=== PATIENT | female | born 1965 | race Caucasian/White ===

== ENCOUNTER 2018-04-06 17:42 | Inpatient (IN) | payer SELFPAY ==
[~2018-04-06] VITALS: Ht 172.7 cm; Wt 103.8 kg
[2018-04-06 17:44] VITALS: BP 92/59; PULSE 57; TEMP 98.9
[2018-04-06] MEDS ORDERED: PRINIVIL10 MG PO (19:15)
[2018-04-06 20:36] LABS: HEMOGLOBIN 12.6 g/dl (12.5-16.0); MEAN CELL VOLUME 87 fl (80.0-100.0); MEAN CORPUSCULAR HEMOGLOBIN 30 pg (27.0-31.0); MEAN CORPUSCULAR HGB CONC 34 g/dl (33.0-37.0); MEAN PLATELET VOLUME 10.7 fl (7.4-10.4); PLATELET COUNT 207 K/mm3 (130-400); RED BLOOD COUNT 4.21 M/mm3 (4.10-5.30); REDCELL DISTRIBUTION WIDTH-CV 12.6 % (11.5-14.5)
[2018-04-06 20:37] LABS: HEMATOCRIT 36.7 % (37.0-47.0)
[2018-04-06 20:41] LABS: PROTHROMBIN TIME 11.2 SECONDS (9.7-12.8)
[2018-04-06 20:44] LABS: PARTIAL THROMBOPLASTIN TIME 24.3 SECONDS (26.0-37.0)
[2018-04-06 20:44] LABS: MAGNESIUM 1.7 mg/dL (1.6-2.3)
[2018-04-06 20:49] VITALS: BP 103/62; PULSE 58; TEMP 98.1
[2018-04-06 21:04] LABS: TROPONIN-I 2.26 ng/mL (0.000-0.034)
[2018-04-06 22:00] VITALS: BP 116/76; PULSE 67; TEMP 98.2
[2018-04-06 23:15] VITALS: BP 108/69; PULSE 68; TEMP 98.2
[2018-04-07] VITALS (23 sets, daily range): BP systolic 13–153; BP diastolic 64–87; PULSE 55–69; TEMP 97.8–98.4
[2018-04-07 05:18] LABS: BASO % 0.4 % (0.0-2.0); EOS # 0.1 (0.0-0.7); EOS % 0.9 % (0-4.0); GRAN % 55.1 % (42.2-75.2); HEMOGLOBIN 11.9 g/dl (12.5-16.0); LYMPH # 3.4 (1.2-3.4); LYMPH % 37.5 % (20.0-51.0); MEAN CELL VOLUME 90 fl (80.0-100.0); MEAN CORPUSCULAR HEMOGLOBIN 30 pg (27.0-31.0); MEAN CORPUSCULAR HGB CONC 33 g/dl (33.0-37.0); MEAN PLATELET VOLUME 10.8 fl (7.4-10.4); MONO # 0.5 (0.1-0.6); MONO % 5.9 % (1.7-9.3); PLATELET COUNT 199 K/mm3 (130-400); RED BLOOD COUNT 4.02 M/mm3 (4.10-5.30); REDCELL DISTRIBUTION WIDTH-CV 12.7 % (11.5-14.5)
[2018-04-07 05:29] LABS: ALBUMIN 3.4 gm/dL (3.5-5.0); BILIRUBIN,TOTAL 0.3 mg/dL (0.0-1.0); CALCIUM 8.1 mg/dL (8.4-10.2); CHOLESTEROL RISK RATIO 6.5; CREATININE, serum 0.55 mg/dL (0.52-1.25); POTASSIUM 3.9 mmol/L (3.4-5.0); TOTAL PROTEIN 6.5 gm/dL (6.4-8.2)
[2018-04-07 05:44] LABS: TROPONIN-I 3.33 ng/mL (0.000-0.034)
[2018-04-08] VITALS (7 sets, daily range): BP systolic 113–153; BP diastolic 74–90; PULSE 62–82; TEMP 97.6–98.3; O2SAT 75
[2018-04-08] MEDS ORDERED: PLAVIX 75MG TAB75 MG PO (14:22)
[2018-04-08] MEDS ORDERED: LIPITOR 40MG TA40 MG PO (14:22)
[2018-04-08] MEDS ORDERED: GLUCOTROL XL5 MG/TAB PO (14:27)
[2018-04-08] MEDS ORDERED: TOPROL XL 25MG25 MG PO (14:27)
[2018-04-08] MEDS ORDERED: ASPIRIN E.C. 8181 MG PO (14:28)
[2018-04-08] MEDS ORDERED: GLUCOPHAGE500 MG/TAB PO (14:32)
[2018-04-08] MEDS ORDERED: GLUCOSE TEST ST1 DEV MC (14:32)
[2018-04-08] MEDS ORDERED: FREESTYLE PREC1 EAC5 MC (14:32)
[2018-04-08] MEDS ORDERED: IMDUR 30MG30 MG/TAB PO (14:34)
== END 2018-04-08 15:10 | disposition home or self-care (01) | DRG 282 ==
LOC: MEDICAL 17:42 → ICU 21:40
PROVIDERS: Nurse Practitioner Family
PROC: B2111ZZ Fluoroscopy of Multiple Coronary Arteries using Low Osmolar Contrast (ICD-10-PCS; principal; 2018-04-07)
PROC: B2151ZZ Fluoroscopy of Left Heart using Low Osmolar Contrast (ICD-10-PCS; 2018-04-07)
PROC: 4A023N7 Measurement of Cardiac Sampling and Pressure, Left Heart, Percutaneous Approach (ICD-10-PCS; 2018-04-07)
DX: I21.4 Non-ST elevation (NSTEMI) myocardial infarction (principal); I10 Essential (primary) hypertension; E11.65 Type 2 diabetes mellitus with hyperglycemia; I25.10 Atherosclerotic heart disease of native coronary artery without angina pectoris; F17.210 Nicotine dependence, cigarettes, uncomplicated; E78.2 Mixed hyperlipidemia
CPT/HCPCS: 99223-AI; 99239; C1769; C1887; G0378; G0379; J1644; J1815; J2250; J2270; J2405; J3010; J7030; Q9967

== ENCOUNTER → 2018-04-27 | Outpatient (CLI) | payer SELFPAY ==
[~2018-04-27] VITALS: Ht 172.8 cm; Wt 102.0 kg
[~2018-04-27] MED LIST: ASPIRIN E.C. 8181 MG PO; FREESTYLE PREC1 EAC5 MC; GLUCOPHAGE500 MG/TAB PO; GLUCOSE TEST ST1 DEV MC; GLUCOTROL XL5 MG/TAB PO; IMDUR 30MG30 MG/TAB PO; LIPITOR 40MG TA40 MG PO; PLAVIX 75MG TAB75 MG PO; PRINIVIL10 MG PO; TOPROL XL 25MG25 MG PO
[2018-04-27 10:54] VITALS: BP 156/81; PULSE 70
== END ==
LOC: COL.CARD 10:34
DX: R07.89 Other chest pain (principal)
CPT/HCPCS: A9502

== ENCOUNTER 2018-06-13 10:16 | Emergency (ER) | payer SELFPAY ==
[~2018-06-13] VITALS: Ht 172.7 cm; Wt 105.0 kg
[2018-06-13 10:22] VITALS: TEMP 97.4
[2018-06-13 10:44] LABS: BASO % 0.4 % (0.0-2.0); EOS # 0.1 (0.0-0.7); EOS % 1.4 % (0-4.0); GRAN % 56.8 % (42.2-75.2); HEMOGLOBIN 13.2 g/dl (12.5-16.0); LYMPH # 2.6 (1.2-3.4); LYMPH % 36.1 % (20.0-51.0); MEAN CELL VOLUME 87 fl (80.0-100.0); MEAN CORPUSCULAR HEMOGLOBIN 29 pg (27.0-31.0); MEAN CORPUSCULAR HGB CONC 33 g/dl (33.0-37.0); MEAN PLATELET VOLUME 9.9 fl (7.4-10.4); MONO # 0.4 (0.1-0.6); MONO % 5.2 % (1.7-9.3); PLATELET COUNT 239 K/mm3 (130-400); REDCELL DISTRIBUTION WIDTH-CV 12.6 % (11.5-14.5)
[2018-06-13 11:01] LABS: ALANINE AMINOTRANSFERASE 38 U/L (9-52); ALBUMIN 4.2 gm/dL (3.5-5.0); ALKALINE PHOSPHATASE 82 U/L (50-136); ANION GAP 7 mmol/L (7-16); AST,SGOT 21 U/L (15-37); BILIRUBIN,TOTAL 0.4 mg/dL (0.0-1.0); BLOOD UREA NITROGEN 14 mg/dL (7-17); CALCIUM 9.6 mg/dL (8.4-10.2); CARBON DIOXIDE 30 mmol/L (22-30); CHLORIDE 104 mmol/L (98-107); CREATININE, serum 0.62 mg/dL (0.52-1.25); GLUCOSE 175 mg/dL (74-106); LIPASE 103 U/L (23-300); POTASSIUM 4.1 mmol/L (3.4-5.0); SODIUM 141 mmol/L (137-145); TOTAL PROTEIN 7.6 gm/dL (6.4-8.2)
[2018-06-13 11:17] LABS: TROPONIN-I < 0.012 ng/mL (0.000-0.034)
[2018-06-13 11:19] LABS: MUCOUS Present /lpf; PH 5 (5-8); SQUAMOUS EPITHELIAL 0-2 /hpf; URINE APPEARANCE Clear; URINE BACTERIA Rare /hpf; URINE BILIRUBIN Negative (NEGATIVE); URINE BLOOD Negative (NEGATIVE); URINE COLOR Straw; URINE GLUCOSE Negative (NEGATIVE); URINE KETONE Negative (NEGATIVE); URINE LEUKOCYTE ESTERASE Negative (NEGATIVE); URINE NITRATE Negative (NEGATIVE); URINE PROTEIN(semi-quant) Negative (NEGATIVE); URINE RBC 0-2 /hpf; URINE UROBILINOGEN Negative (NEGATIVE); URINE WBC None Seen /hpf
[2018-06-13 11:28] LABS: COLLECTION METHOD CLEAN CATCH
[2018-06-13] MEDS ORDERED: NITROSTAT0.4 MG/TAB SL (13:54)
[2018-06-13 14:13] VITALS: BP 120/68; PULSE 69
== END 2018-06-13 14:13 | disposition home or self-care (01) ==
LOC: COL.ER 10:16
PROVIDERS: Emergency Medicine
DX: I20.9 Angina pectoris, unspecified (principal); I10 Essential (primary) hypertension; E11.9 Type 2 diabetes mellitus without complications; E66.9 Obesity, unspecified; Z79.82 Long term (current) use of aspirin; Z87.891 Personal history of nicotine dependence; Z95.9 Presence of cardiac and vascular implant and graft, unspecified; Z79.02 Long term (current) use of antithrombotics/antiplatelets; Z79.84 Long term (current) use of oral hypoglycemic drugs; Z68.35 Body mass index [BMI] 35.0-35.9, adult
CPT/HCPCS: J7030

== ENCOUNTER 2018-10-24 16:55 | Observation (INO) | payer BC ==
[2018-10-24] VITALS (119 sets, daily range): O2SAT 86–97
[~2018-10-24] VITALS: Ht 172.7 cm; Wt 106.8 kg
[~2018-10-24 16:55] MED LIST changes: +NITROSTAT0.4 MG/TAB SL
[2018-10-24 17:16] LABS: BASO # 0.1 (0.0-0.2); BASO % 0.6 % (0.0-2.0); EOS # 0.1 (0.0-0.7); GRAN # 5.1 (1.4-6.5); GRAN % 53.3 % (42.2-75.2); HEMOGLOBIN 13.9 g/dl (12.5-16.0); LYMPH # 3.8 (1.2-3.4); LYMPH % 39.2 % (20.0-51.0); MEAN CELL VOLUME 85 fl (80.0-100.0); MEAN CORPUSCULAR HEMOGLOBIN 28 pg (27.0-31.0); MEAN CORPUSCULAR HGB CONC 33 g/dl (33.0-37.0); MEAN PLATELET VOLUME 9.9 fl (7.4-10.4); MONO # 0.6 (0.1-0.6); MONO % 5.7 % (1.7-9.3); PLATELET COUNT 274 K/mm3 (130-400); RED BLOOD COUNT 4.94 M/mm3 (4.10-5.30); REDCELL DISTRIBUTION WIDTH-CV 13.1 % (11.5-14.5)
[2018-10-24 17:24] LABS: PROTHROMBIN TIME 11.6 SECONDS (9.7-12.8)
[2018-10-24 17:29] LABS: ALANINE AMINOTRANSFERASE 17 U/L (9-52); ALBUMIN 4.5 gm/dL (3.5-5.0); ALKALINE PHOSPHATASE 99 U/L (50-136); ANION GAP 10 mmol/L (7-16); AST,SGOT 21 U/L (15-37); BILIRUBIN,TOTAL 0.5 mg/dL (0.0-1.0); BLOOD UREA NITROGEN 17 mg/dL (7-17); CALCIUM 10.3 mg/dL (8.4-10.2); CARBON DIOXIDE 30 mmol/L (22-30); CHLORIDE 100 mmol/L (98-107); CREATININE, serum 0.72 (0.52-1.25); GLUCOSE 106 mg/dL (74-106); SODIUM 139 mmol/L (137-145); TOTAL PROTEIN 8.7 gm/dL (6.4-8.2)
[2018-10-24 17:41] LABS: TROPONIN-I < 0.012 ng/mL (0.000-0.035)
--- NOTE | 2018-10-24 21:00 | NUR ---
Pt report received from Karina BANDA in ED.
--- NOTE | 2018-10-24 21:05 | NUR ---
Pt arrived to ICU06 via stretcher. Sister in waiting room at this time. Pt currently has glasses in place on face. Pleasant and cooperative making wants and needs known to staff at this time. Speech is clear with A&O X4 demonstrated.
[2018-10-24] MEDS ORDERED: TOPROL XL 25MG25 MG PO (21:26)
[2018-10-25] VITALS (541 sets, daily range): BP systolic 111–132; BP diastolic 49–89; PULSE 60–81; TEMP 97.7–98.6; O2SAT 82–100
--- NOTE | 2018-10-25 00:30 | NUR ---
RT notified of decreased O2 sat seen as low as 88% on RA. NC 2L placed on pt at this time.
--- NOTE | 2018-10-25 05:00 | NUR ---
Pt reported a "really bad headache" at this time. PRN Tylenol administered in attempts to help. Pt denies any chest pain at this time. Discussion had with pt with agreement to try to titrate Nitro down due to improvement in chest pain and worsening of headache.
[2018-10-25 05:36] LABS: BASO % 0.6 % (0.0-2.0); EOS # 0.1 (0.0-0.7); GRAN # 3.4 (1.4-6.5); GRAN % 48.6 % (42.2-75.2); HEMATOCRIT 38.3 % (37.0-47.0); HEMOGLOBIN 12.5 g/dl (12.5-16.0); MEAN CELL VOLUME 86 fl (80.0-100.0); MEAN CORPUSCULAR HEMOGLOBIN 28 pg (27.0-31.0); MEAN CORPUSCULAR HGB CONC 33 g/dl (33.0-37.0); MEAN PLATELET VOLUME 9.7 fl (7.4-10.4); MONO # 0.5 (0.1-0.6); MONO % 6.7 % (1.7-9.3); PLATELET COUNT 229 K/mm3 (130-400); RED BLOOD COUNT 4.48 M/mm3 (4.10-5.30); REDCELL DISTRIBUTION WIDTH-CV 13.3 % (11.5-14.5)
[2018-10-25 05:46] LABS: CALCIUM 9.4 mg/dL (8.4-10.2); CREATININE, serum 0.65 (0.52-1.25); POTASSIUM 4.1 mmol/L (3.4-5.0)
--- NOTE | 2018-10-25 06:15 | NUR ---
Pt reports headache has resolved although the midline chest pressure has gradually returned. Pt and nurse verbal agreement received to treat the chest pressure at this time over headache if prioritizing, especially since pt reports headaches has improved at this time.
--- NOTE | 2018-10-25 07:10 | NUR ---
Bedside report provided to Boom Chance RN. Pt resting in bed at this time with television on.
--- NOTE | 2018-10-25 10:56 | NUR ---
Initial visit; Patient thanked Travel Registered Nurse Oncology for looking in on her and asked Travel Registered Nurse Oncology to keep her in Travel Registered Nurse Oncology's prayers.
--- NOTE | 2018-10-25 15:25 | NUR ---
SW and SW student attended clinical rounding and met with patient to discuss discharge planning. Patient lives with her sister Luana in [place]. Her PCP is Joana DIAZ and she obtains her medications from [facility] in . Patient has a DPOA on EMR that lists her son Surendra. Patient is independent in ADLS. no anticipated discharge needs at this time.
--- NOTE | 2018-10-25 17:30 | NUR ---
Report phoned to VERONIKA Morgan
--- NOTE | 2018-10-25 17:31 | NUR ---
received report from VERONIKA Nur
--- NOTE | 2018-10-25 17:44 | NUR ---
patient arrived to room 309 via wheelchair.Transported by VERONIKA Nur
--- NOTE | 2018-10-25 19:08 | NUR ---
PATIENT SITTING UP IN BED.A/OX3.DENIES PAIN OR DISCOMFORT AT THIS TIME.BREATHING EVEN AND UNALBORED.PATIENT ON RA.PATIENT TOOK A SHOWER.REMAINS ON CLEAR LIQUID DIET.PATIENT DENIES CHEST PAIN.TELE ON-NSR.PATIENT DENIES ANY FURTHER NEEDS.CALL LIGHT IN REACH
--- NOTE | 2018-10-25 19:10 | NUR ---
REPORT GIVEN TO VERONIKA SEGURA.
--- NOTE | 2018-10-25 19:20 | NUR ---
Patient resting in bed watching tv, just finished showering and eating dinner. Put back on telemetry after shower. Reports some epigastric pain after finishing her dinner- 08/04, but reports no nausea at this time. Lung sounds clear, abdominal sounds active, pulses +3, alert and oriented x4, steady gait. No further needs at this time.
[2018-10-26 03:14] VITALS: BP 109/51; PULSE 75; TEMP 98.2
--- NOTE | 2018-10-26 05:01 | NUR ---
Pt slept for most of the night, VSS, given TUMS at beginning of shift for some epigastric pain. No needs at this time.
--- NOTE | 2018-10-26 07:00 | NUR ---
Reported on to Jana BANDA
--- NOTE | 2018-10-26 07:06 | NUR ---
Report given to VERONIKA Bates. Patient resting in bed at this time.
--- NOTE | 2018-10-26 07:25 | NUR ---
Received report. Pt sitting in bed, complaining of mild nausea and says her chest was hurting when she was sitting up high. Will administer zofran per emar.
--- NOTE | 2018-10-26 07:30 | NUR ---
Pt sitting up in bed, refused zofran. Stated she was feeling better and thought she would wait. Pt says her chest feels heavy when she is sitting upright. Jonnathan continue to monitor. Call light in reach.
--- NOTE | 2018-10-26 07:45 | NUR ---
Shift Assessment complete, INT to right forearm CDI; reports midsternal pressure at a level 3, worsens when sitting upright or leaning forward; No further needs at this time
[2018-10-26 07:50] VITALS: BP 132/79; PULSE 73; TEMP 97.3
--- NOTE | 2018-10-26 08:15 | NUR ---
Completed morning assessment. Reviewed [facility] student [place] assessment. Agree with assessment.
--- NOTE | 2018-10-26 10:15 | NUR ---
Follow-up visit; Patient states she is discouraged about her present health status. Customer Support Coordinator listened and offered spiritual care.
--- NOTE | 2018-10-26 10:15 | NUR ---
Pt states her pain is better now but still at a 3 on scale 0-10. Pt had shower and has no nausea at the moment.
[2018-10-26 11:13] VITALS: BP 129/75; PULSE 63; TEMP 97.9
[2018-10-26 15:49] VITALS: BP 115/69; PULSE 71; TEMP 97.6
--- NOTE | 2018-10-26 18:00 | NUR ---
PT SITTING IN CHAIR EATING DINNER. COMPLAINING OF CHEST TIGHTNESS STILL. FEELING ANXIOUS THAT NO ONE HAS GIVEN HER EXACT IDEA ABOUT WHAT IS HAPPENING. DENIES ANY OTHER NEEDS.
--- NOTE | 2018-10-26 18:54 | NUR ---
Hand off report given to Diana BANDA.
[2018-10-26 19:32] VITALS: BP 115/58; PULSE 72; TEMP 97.5
--- NOTE | 2018-10-26 22:19 | NUR ---
Patient assessed. Denies having pain and discomfort. LS CTA. Peripheral IV to right AC is patent, and without redness, warmth, swelling, and pain. Vioces no needs or concerns at this time. Resting in bed with eyes closed at this time. Call light is within reach.
--- NOTE | 2018-10-26 23:10 | NUR ---
Resting in bed with eyes closed at this time.
[2018-10-26 23:25] VITALS: BP 116/58; PULSE 70; TEMP 97.6
[2018-10-27 03:55] VITALS: BP 115/61; PULSE 67; TEMP 97.7
--- NOTE | 2018-10-27 05:41 | NUR ---
Patient denies having pain and discomfort. Took shower this morning. Voices no needs or concerns at this time. In bed watching TV at this time. Call light is within reach.
[2018-10-27 06:25] LABS: HEMATOCRIT 38.4 % (37.0-47.0); HEMOGLOBIN 12.7 g/dl (12.5-16.0); MEAN CELL VOLUME 85 fl (80.0-100.0); MEAN CORPUSCULAR HEMOGLOBIN 28 pg (27.0-31.0); MEAN CORPUSCULAR HGB CONC 33 g/dl (33.0-37.0); MEAN PLATELET VOLUME 9.5 fl (7.4-10.4); PLATELET COUNT 237 K/mm3 (130-400); RED BLOOD COUNT 4.52 M/mm3 (4.10-5.30); REDCELL DISTRIBUTION WIDTH-CV 13.1 % (11.5-14.5)
[2018-10-27 06:39] LABS: CALCIUM 9.2 mg/dL (8.4-10.2); CREATININE, serum 0.58 (0.52-1.25); POTASSIUM 4.1 mmol/L (3.4-5.0)
[2018-10-27 07:57] VITALS: BP 115/73; PULSE 67; TEMP 97.7
--- NOTE | 2018-10-27 09:31 | NUR ---
Follow-up visit; Patient thanked University Intern for looking in on her again today. She continues to be discouraged about her physical status but continues to have stephon things will turn around.
[2018-10-27 12:12] VITALS: BP 123/82; PULSE 59; TEMP 98.3
[2018-10-27] MEDS ORDERED: IMDUR 60MG60 MG/TAB PO (12:20)
[2018-10-27] MEDS ORDERED: MOTRIN 400400 MG/TAB PO (12:21)
[2018-10-27] MEDS ORDERED: PROTONIX20 MG PO (12:21)
[2018-10-27] MEDS ORDERED: COLCRYS0.6 MG PO (12:22)
[2018-10-27] MEDS ORDERED: GLUCOPHAGE850 MG/TAB PO (12:22)
[2018-10-27] MEDS ORDERED: RANEXA 500MG T500 MG PO (12:23)
--- NOTE | 2018-10-27 13:00 | NUR ---
PT SITTING IN CHAIR. PT WILL BE DISCHARGING, DENIED HAVING ANY QUESTIONS. STILL HAVING TIGHTNESS IN HER CHEST, BUT NO PAIN OR NAUSEA. WILL CONTINUE TO MONITOR.
--- NOTE | 2018-10-27 14:30 | NUR ---
Discharge paperwork given. All questions answered. INT removed, catheter tip intact, no redness or swelling noted. Pt has all belongings.
--- NOTE | 2018-10-27 15:35 | NUR ---
Pt walked out by staff to elevator.
== END 2018-10-27 15:35 | disposition home or self-care (01) ==
LOC: COL.ER 16:55 → ICU 18:46 → IMCU 10-25 08:26 → ICU 10-25 08:26 → IMCU 10-25 09:18 → ICU 10-25 09:18 → MEDICAL 10-25 17:33
PROVIDERS: Family Medicine; Nurse Practitioner; Physician Assistant; ADMIT Internal Medicine
DX: R07.9 Chest pain, unspecified (principal); E11.9 Type 2 diabetes mellitus without complications; Z79.4 Long term (current) use of insulin; E78.5 Hyperlipidemia, unspecified; I25.2 Old myocardial infarction; I10 Essential (primary) hypertension; Z79.02 Long term (current) use of antithrombotics/antiplatelets; Z79.82 Long term (current) use of aspirin; Z79.899 Other long term (current) drug therapy; Z87.891 Personal history of nicotine dependence; Z80.0 Family history of malignant neoplasm of digestive organs; Z82.49 Family history of ischemic heart disease and other diseases of the circulatory system; Z88.2 Allergy status to sulfonamides; F41.0 Panic disorder [episodic paroxysmal anxiety]; Z90.710 Acquired absence of both cervix and uterus; Z90.49 Acquired absence of other specified parts of digestive tract
CPT/HCPCS: 99232-AI; G0378; J2405

== ENCOUNTER 2019-02-26 08:40 | Emergency (ER) | payer BC ==
[~2019-02-26] VITALS: Ht 172.7 cm; Wt 104.5 kg
[~2019-02-26 08:40] MED LIST changes: +COLCRYS0.6 MG PO; +GLUCOPHAGE850 MG/TAB PO; +IMDUR 60MG60 MG/TAB PO; +MOTRIN 400400 MG/TAB PO; +PROTONIX20 MG PO; +RANEXA 500MG T500 MG PO
[2019-02-26 08:47] VITALS: TEMP 98.7
[2019-02-26 09:17] LABS: BASO # 0.1 (0.0-0.2); BASO % 0.6 % (0.0-2.0); EOS # 0.1 (0.0-0.7); EOS % 1.7 % (0-4.0); GRAN # 4.2 (1.4-6.5); GRAN % 54.1 % (42.2-75.2); HEMATOCRIT 42.6 % (37.0-47.0); LYMPH % 38.2 % (20.0-51.0); MEAN CELL VOLUME 87 fl (80.0-100.0); MEAN CORPUSCULAR HEMOGLOBIN 29 pg (27.0-31.0); MEAN CORPUSCULAR HGB CONC 33 g/dl (33.0-37.0); MONO # 0.4 (0.1-0.6); MONO % 5.1 % (1.7-9.3); PLATELET COUNT 240 K/mm3 (130-400); RED BLOOD COUNT 4.91 M/mm3 (4.10-5.30); REDCELL DISTRIBUTION WIDTH-CV 12.8 % (11.5-14.5)
[2019-02-26 09:21] LABS: INR 0.9 (0.8-3.0); PROTHROMBIN TIME 10.1 SECONDS (9.7-12.8)
[2019-02-26 09:24] LABS: PARTIAL THROMBOPLASTIN TIME 30.1 SECONDS (26.0-37.0)
[2019-02-26 09:26] LABS: ALANINE AMINOTRANSFERASE 19 U/L (9-52); ALBUMIN 4.4 gm/dL (3.5-5.0); ALKALINE PHOSPHATASE 93 U/L (50-136); ANION GAP 13 mmol/L (7-16); AST,SGOT 21 U/L (15-37); BILIRUBIN,TOTAL 0.6 mg/dL (0.0-1.0); BLOOD UREA NITROGEN 14 mg/dL (7-17); CALCIUM 9.8 mg/dL (8.4-10.2); CARBON DIOXIDE 27 mmol/L (22-30); CHLORIDE 102 mmol/L (98-107); CREATININE, serum 0.63 (0.52-1.25); GLUCOSE 142 mg/dL (74-106); SODIUM 141 mmol/L (137-145); TOTAL PROTEIN 8.1 gm/dL (6.4-8.2)
[2019-02-26 09:44] LABS: TROPONIN-I < 0.012 ng/mL (0.000-0.035)
[2019-02-26] MEDS ORDERED: GLUCOPHAGE1000 MG PO (10:51)
[2019-02-26 12:03] VITALS: BP 111/68; PULSE 65
== END 2019-02-26 12:03 | disposition home or self-care (01) ==
LOC: COL.ER 08:40
PROVIDERS: Family Medicine
DX: H83.09 Labyrinthitis, unspecified ear (principal); I10 Essential (primary) hypertension; E11.9 Type 2 diabetes mellitus without complications; I25.10 Atherosclerotic heart disease of native coronary artery without angina pectoris; Z79.84 Long term (current) use of oral hypoglycemic drugs; Z79.82 Long term (current) use of aspirin; Z79.02 Long term (current) use of antithrombotics/antiplatelets
CPT/HCPCS: J2405; J7030

== ENCOUNTER → 2019-02-27 | Outpatient (CLI) | payer BC ==
[~2019-02-27] MED LIST changes: +GLUCOPHAGE1000 MG PO
== END ==
LOC: DIA.ED 08:17
DX: E11.9 Type 2 diabetes mellitus without complications (principal); E78.5 Hyperlipidemia, unspecified; I10 Essential (primary) hypertension; E66.9 Obesity, unspecified
CPT/HCPCS: G0108

== ENCOUNTER → 2019-03-22 | Outpatient (CLI) | payer BC | LOC: DIA.ED 08:20 | DX: E11.9 Type 2 diabetes mellitus without complications (principal); E78.5 Hyperlipidemia, unspecified; I10 Essential (primary) hypertension; E66.9 Obesity, unspecified | CPT/HCPCS: G0108 ==

== ENCOUNTER → 2019-04-19 | Outpatient (CLI) | payer BC | LOC: DIA.ED 08:19 | DX: E11.9 Type 2 diabetes mellitus without complications (principal); E78.5 Hyperlipidemia, unspecified; I10 Essential (primary) hypertension; E66.9 Obesity, unspecified | CPT/HCPCS: G0108 ==

== ENCOUNTER 2019-04-27 09:50 | Emergency (ER) | payer BC ==
[~2019-04-27] VITALS: Ht 172.7 cm; Wt 104.7 kg
[2019-04-27 09:52] VITALS: TEMP 98.1
[2019-04-27 10:18] LABS: BASO % 0.3 % (0.0-2.0); EOS # 0.1 (0.0-0.7); GRAN # 5.6 (1.4-6.5); GRAN % 63.7 % (42.2-75.2); HEMOGLOBIN 12.9 g/dl (12.5-16.0); LYMPH # 2.6 (1.2-3.4); LYMPH % 29.9 % (20.0-51.0); MEAN CELL VOLUME 87 fl (80.0-100.0); MEAN CORPUSCULAR HEMOGLOBIN 29 pg (27.0-31.0); MEAN CORPUSCULAR HGB CONC 33 g/dl (33.0-37.0); MEAN PLATELET VOLUME 9.8 fl (7.4-10.4); MONO # 0.4 (0.1-0.6); MONO % 4.8 % (1.7-9.3); PLATELET COUNT 233 K/mm3 (130-400); PROTHROMBIN TIME 11.1 SECONDS (9.7-12.8); RED BLOOD COUNT 4.46 M/mm3 (4.10-5.30); REDCELL DISTRIBUTION WIDTH-CV 12.8 % (11.5-14.5)
[2019-04-27 10:22] LABS: ALANINE AMINOTRANSFERASE 15 U/L (9-52); ALBUMIN 3.9 gm/dL (3.5-5.0); ALKALINE PHOSPHATASE 78 U/L (50-136); ANION GAP 11 mmol/L (7-16); AST,SGOT 19 U/L (15-37); BILIRUBIN,TOTAL 0.4 mg/dL (0.0-1.0); BLOOD UREA NITROGEN 16 mg/dL (7-17); CALCIUM 9.7 mg/dL (8.4-10.2); CARBON DIOXIDE 25 mmol/L (22-30); CHLORIDE 106 mmol/L (98-107); CREATININE, serum 0.65 (0.52-1.25); GLUCOSE 166 mg/dL (74-106); LIPASE 135 U/L (23-300); POTASSIUM 4.3 mmol/L (3.4-5.0); SODIUM 141 mmol/L (137-145); TOTAL PROTEIN 7.2 gm/dL (6.4-8.2)
[2019-04-27 10:36] LABS: TROPONIN-I < 0.012 ng/mL (0.000-0.035)
[2019-04-27] MEDS ORDERED: IMDUR 30MG30 MG/TAB PO (10:47)
[2019-04-27] MEDS ORDERED: FARXIGA5 PO (10:51)
[2019-04-27 14:23] VITALS: BP 113/59; PULSE 73
== END 2019-04-27 14:27 | disposition home or self-care (01) ==
LOC: COL.ER 09:50
PROVIDERS: Emergency Medicine
DX: R06.02 Shortness of breath (principal); E11.9 Type 2 diabetes mellitus without complications; E78.5 Hyperlipidemia, unspecified; Z79.02 Long term (current) use of antithrombotics/antiplatelets; Z79.84 Long term (current) use of oral hypoglycemic drugs; F17.210 Nicotine dependence, cigarettes, uncomplicated
CPT/HCPCS: J2060; J2550; J7030

== ENCOUNTER → 2019-06-01 | Outpatient (CLI) | payer BC ==
[~2019-06-01] MED LIST changes: +FARXIGA5 PO
== END ==
LOC: DIA.ED 08:21
DX: E11.9 Type 2 diabetes mellitus without complications (principal); E78.5 Hyperlipidemia, unspecified; I10 Essential (primary) hypertension; E66.9 Obesity, unspecified
CPT/HCPCS: G0108

== ENCOUNTER → 2019-08-31 | Outpatient (CLI) | payer BC | LOC: DIA.ED 08:28 | DX: E11.9 Type 2 diabetes mellitus without complications (principal); Z79.84 Long term (current) use of oral hypoglycemic drugs; Z68.34 Body mass index [BMI] 34.0-34.9, adult; I25.10 Atherosclerotic heart disease of native coronary artery without angina pectoris; E78.5 Hyperlipidemia, unspecified; I10 Essential (primary) hypertension | CPT/HCPCS: G0108 ==

== ENCOUNTER → 2020-01-24 | Outpatient (CLI) | payer BC | LOC: ZCOL.LAB 17:20 | DX: M79.604 Pain in right leg (principal) ==

== ENCOUNTER → 2020-01-24 | Outpatient (CLI) | payer BC | LOC: ZCOL.LAB 16:21 | DX: M79.604 Pain in right leg (principal) ==

== ENCOUNTER → 2020-02-22 | Outpatient (CLI) | payer BC | LOC: COL.RAD 09:13 | DX: M51.27 Other intervertebral disc displacement, lumbosacral region (principal); M47.897 Other spondylosis, lumbosacral region; Z90.710 Acquired absence of both cervix and uterus ==

== ENCOUNTER 2020-04-06 18:09 | Emergency (ER) | payer BC ==
[~2020-04-06] VITALS: Ht 172.7 cm; Wt 100.9 kg
[2020-04-06 18:14] VITALS: BP 163/79; TEMP 98.6
[2020-04-06 18:38] LABS: BASO % 0.1 % (0.0-2.0); GRAN # 11.8 (1.4-6.5); GRAN % 82.5 % (42.2-75.2); HEMATOCRIT 41.7 % (37.0-47.0); HEMOGLOBIN 13.9 g/dl (12.5-16.0); LYMPH # 1.9 (1.2-3.4); LYMPH % 13.4 % (20.0-51.0); MEAN CELL VOLUME 87 fl (80.0-100.0); MEAN CORPUSCULAR HEMOGLOBIN 29 pg (27.0-31.0); MEAN CORPUSCULAR HGB CONC 33 g/dl (33.0-37.0); MEAN PLATELET VOLUME 9.9 fl (7.4-10.4); MONO # 0.5 (0.1-0.6); MONO % 3.6 % (1.7-9.3); PLATELET COUNT 276 K/mm3 (130-400); RED BLOOD COUNT 4.82 M/mm3 (4.10-5.30); REDCELL DISTRIBUTION WIDTH-CV 13.1 % (11.5-14.5)
[2020-04-06 19:01] LABS: ERYTHROCYTE SEDIMENTATION RATE 7 mm/hr (0-30)
[2020-04-06] MEDS ORDERED: CEPHALEXIN500 M1 PO (19:15)
[2020-04-06 19:32] VITALS: PULSE 81
== END 2020-04-06 19:31 | disposition home or self-care (01) ==
LOC: COL.ER 18:09
PROVIDERS: Family Medicine
DX: L03.115 Cellulitis of right lower limb (principal); E11.9 Type 2 diabetes mellitus without complications; I25.10 Atherosclerotic heart disease of native coronary artery without angina pectoris; Z79.84 Long term (current) use of oral hypoglycemic drugs; Z79.02 Long term (current) use of antithrombotics/antiplatelets

== ENCOUNTER 2020-05-14 17:57 | Observation (INO) | payer BC ==
[~2020-05-14] VITALS: Ht 172.7 cm; Wt 105.9 kg
[~2020-05-14 17:57] MED LIST changes: +CEPHALEXIN500 M1 PO
[2020-05-14 18:50] LABS: BASO # 0.1 (0.0-0.2); BASO % 0.6 % (0.0-2.0); EOS # 0.1 (0.0-0.7); EOS % 1.1 % (0-4.0); GRAN # 5.3 (1.4-6.5); GRAN % 59.4 % (42.2-75.2); HEMATOCRIT 41.4 % (37.0-47.0); HEMOGLOBIN 13.8 g/dl (12.5-16.0); LYMPH # 2.9 (1.2-3.4); LYMPH % 32.6 % (20.0-51.0); MEAN CELL VOLUME 87 fl (80.0-100.0); MEAN CORPUSCULAR HEMOGLOBIN 29 pg (27.0-31.0); MEAN CORPUSCULAR HGB CONC 33 g/dl (33.0-37.0); MEAN PLATELET VOLUME 9.7 fl (7.4-10.4); MONO # 0.5 (0.1-0.6); PLATELET COUNT 266 K/mm3 (130-400); RED BLOOD COUNT 4.76 M/mm3 (4.10-5.30); REDCELL DISTRIBUTION WIDTH-CV 12.7 % (11.5-14.5)
[2020-05-14 18:56] LABS: ALANINE AMINOTRANSFERASE 30 U/L (4-34); ALBUMIN 4.7 gm/dL (3.5-5.0); ALKALINE PHOSPHATASE 87 U/L (50-136); ANION GAP 10 mmol/L (7-16); AST,SGOT 27 U/L (15-37); BILIRUBIN,TOTAL 0.5 mg/dL (0.0-1.0); BLOOD UREA NITROGEN 18 mg/dL (7-17); CARBON DIOXIDE 29 mmol/L (22-30); CHLORIDE 99 mmol/L (98-107); CREATININE, serum 0.71 (0.52-1.25); GLUCOSE 115 mg/dL (74-106); POTASSIUM 4.1 mmol/L (3.4-5.0); SODIUM 138 mmol/L (137-145); TOTAL PROTEIN 8.2 gm/dL (6.4-8.2)
[2020-05-14 19:01] LABS: INR 0.9 (0.8-3.0)
[2020-05-14 19:11] LABS: TROPONIN-I < 0.012 ng/mL (0.000-0.035)
[2020-05-15] VITALS (246 sets, daily range): BP systolic 101–146; BP diastolic 57–91; PULSE 60–91; TEMP 97.6–98.6; O2SAT 84–100
--- NOTE | 2020-05-15 00:35 | NUR ---
Pt admission procedure completed, alert, oriented, roomair. Pt has clear heart and lung sound. No open wounds, edema. Meds provided as per SEP, tolerated well. Pt denies any N/V/D, tingling, numbness, pain, SOA at this time. Pt is settled on the bed, call light is on reach. No further needs at this time.
[2020-05-15 04:50] LABS: BASO % 0.6 % (0.0-2.0); EOS # 0.1 (0.0-0.7); EOS % 1.2 % (0-4.0); GRAN # 3.3 (1.4-6.5); GRAN % 48.5 % (42.2-75.2); HEMOGLOBIN 12.1 g/dl (12.5-16.0); LYMPH # 2.9 (1.2-3.4); LYMPH % 42.9 % (20.0-51.0); MEAN CELL VOLUME 87 fl (80.0-100.0); MEAN CORPUSCULAR HEMOGLOBIN 29 pg (27.0-31.0); MEAN CORPUSCULAR HGB CONC 33 g/dl (33.0-37.0); MEAN PLATELET VOLUME 9.9 fl (7.4-10.4); MONO # 0.4 (0.1-0.6); MONO % 6.5 % (1.7-9.3); PLATELET COUNT 221 K/mm3 (130-400); RED BLOOD COUNT 4.18 M/mm3 (4.10-5.30); REDCELL DISTRIBUTION WIDTH-CV 12.9 % (11.5-14.5)
[2020-05-15 04:52] LABS: HEMATOCRIT 36.5 % (37.0-47.0)
[2020-05-15 05:00] LABS: CREATININE, serum 0.6 (0.52-1.25)
--- NOTE | 2020-05-15 05:27 | NUR ---
Pt had an uneventful night. Heparin drip running, Morning meds provided. No further needds at this time.
--- NOTE | 2020-05-15 07:30 | NUR ---
PT PLEASANT, AOX4, C/O CHEST PAIN 3.5/10 SAYING ITS A DULL PRESSURE, PT STATING IT'S HOT IN ROOM, BP TRENDING DOWN OVER THE NIGHT, PT STATES CHEST PAIN COMES ON WHEN SITTING UP, ASSESSMENT PERFORMED, PT STATES SHE GETS SLIGHTLY DIZZY WHEN STANDING, EDUCATED TO USE CALL LIGHT WHEN NEEDING TO GET UP, PT DOING THIS. HEPARIN AND FLUIDS ATTACHED TO PT.
--- NOTE | 2020-05-15 07:44 | NUR ---
CALLED PHYSICIAN ABOUT PT CHEST PAIN, LEFT MESSAGE.
--- NOTE | 2020-05-15 09:07 | NUR ---
PT REPORT CHEST PAIN RELIEF WITH MORPHINE.
--- NOTE | 2020-05-15 10:26 | NUR ---
CALLED [facility] TO NOTIFY OF LEXISCAN ORDERS.
--- NOTE | 2020-05-15 11:54 | NUR ---
Peanut Picker met with patient and patient's sister, Luana (ph#[phone]) to discuss discharge planning. Patient lives alone in [place] and sees Dr. Webb for primary care. Patient obtains her medications at [facility] in with no difficulties. Patient reports she is employed at [email or web address] in . Patient has DPOA-HC in EMR which designates her son, Surendra Estrada (ph#[phone]). Patient states she has two children, Surendra ([place]) and Radha ([place]). Patient does not use any DME and reports independence with ADLS. Patient plans to return home upon discharge with her sister providing transportation. SW will continue to follow as needed.
--- NOTE | 2020-05-15 14:28 | NUR ---
CONSENT SIGNED, FLUIDS HUNG, PT TAKEN DOWN FOR HEART CATH.
[2020-05-15 14:56] LABS: CHOLESTEROL RISK RATIO 5.1
--- NOTE | 2020-05-15 15:06 | NUR ---
SEE MEREALEN FOR ALL MEDICATION ADMINISTRATION TIMES, INTRA AND POST SEDATION ASSESSMENTS
--- NOTE | 2020-05-15 17:42 | NUR ---
Patient alert and oriented. AlaynaNurse gave report on heart cath procedure. Right radial was used as access point. stent was placed in right coronary artery. vital within define limit. [facility] medical nurse gave report on why patient was admitted. Patient tolerate diet well, adequate urine output. Sister visit at bedside.
--- NOTE | 2020-05-15 18:08 | NUR ---
Dr Lafleur gave ordered Plavix 300mg PO Once over the phone.
--- NOTE | 2020-05-15 18:12 | NUR ---
patient came down with about 900ml of I/2NS from dye lab technician. restarted 1/2NS at 100mL/HR. Patient resting in bed, denies any pain.
--- NOTE | 2020-05-15 19:06 | NUR ---
attempted to take out 5mL of air out of compression band on right radial at 1835, as patient was eating at 2hr brenda 1814. patient had mild bleeding. returned 5mL of air back, bleeding stopped. 2+ pulse in all extremity.
--- NOTE | 2020-05-15 19:13 | NUR ---
REPORT GIVEN TO VERONIKA ALFARO
--- NOTE | 2020-05-15 20:00 | NUR ---
Patient resting in bed; alert and oriented and in no distress. Right radial site clean, dry and intact;+2 pulse palpated. Assisted up to use the bathroom; gait steady. VS stable, no concerns at this time.
[2020-05-16] VITALS (225 sets, daily range): BP systolic 106–136; BP diastolic 66–78; PULSE 64–86; TEMP 98–98.4; O2SAT 93–100
--- NOTE | 2020-05-16 02:30 | NUR ---
Assisted up to the bathroom. Stand by assistance only required. Radial site within normal limits. Denies any concerns or complaints at this time.
[2020-05-16 06:10] LABS: CALCIUM 8.8 mg/dL (8.4-10.2); CREATININE, serum 0.62 (0.52-1.25); POTASSIUM 4.1 mmol/L (3.4-5.0)
--- NOTE | 2020-05-16 07:15 | NUR ---
RECEIVED REPORT FROM VERONIKA ALFARO. PT AWAKE AND SITTING UP TO EAT BREAKFAST. PT GETS SELF TO TOILET IN ROOM. STEADY GAIT. CALL LIGHT WITHIN REACH. VSS. DENIES ANY NEEDS.
--- NOTE | 2020-05-16 09:54 | NUR ---
DR BUSTAMANTE AT BEDSIDE FOR ASSESSMENT AND DISCUSSING POC WITH PT.
[2020-05-16] MEDS ORDERED: LIPITOR 80MG80 MG PO (09:57)
[2020-05-16] MEDS ORDERED: ASPIRIN 81M81 MG/TA2 PO (09:59)
--- NOTE | 2020-05-16 10:10 | NUR ---
Manager Corporate Responsibility attended clinical rounds with the team and patient to discharge home today. Patient to have follow up chest CT in three months as well as follow up appointment's with Dr. Webb and Dr. Medina. Patient requested a note from Hospitalist to return to work on Wednesday. Following rounds, SW followed up with patient who reports no concerns about returning home. Patient states her sister, Luana is on her way to pick her up. No additional needs at this time.
[2020-05-16 18:33] LABS: C-ANCA 10 U/mL (0-99)
== END 2020-05-16 11:16 | disposition home or self-care (01) ==
LOC: COL.ER 17:57 → ICU 22:25 → MEDICAL 22:25 → ICU 05-15 16:17
PROVIDERS: Emergency Medicine; Physician Assistant; ADMIT Hospitalist
DX: I25.110 Atherosclerotic heart disease of native coronary artery with unstable angina pectoris (principal); I25.82 Chronic total occlusion of coronary artery; I11.0 Hypertensive heart disease with heart failure; I50.30 Unspecified diastolic (congestive) heart failure; E11.9 Type 2 diabetes mellitus without complications; E78.5 Hyperlipidemia, unspecified; I25.2 Old myocardial infarction; R91.1 Solitary pulmonary nodule; E66.9 Obesity, unspecified; F41.9 Anxiety disorder, unspecified; F41.0 Panic disorder [episodic paroxysmal anxiety]; M19.90 Unspecified osteoarthritis, unspecified site; Z68.34 Body mass index [BMI] 34.0-34.9, adult; Z90.710 Acquired absence of both cervix and uterus; Z79.84 Long term (current) use of oral hypoglycemic drugs; Z90.49 Acquired absence of other specified parts of digestive tract; Z79.899 Other long term (current) drug therapy; Z79.02 Long term (current) use of antithrombotics/antiplatelets; Z88.2 Allergy status to sulfonamides; Z88.8 Allergy status to other drugs, medicaments and biological substances; Z87.891 Personal history of nicotine dependence
CPT/HCPCS: 99223-AI; A9500; C9600; G0378; J0583; J0780; J1644; J2250; J2270; J2405; J2785; J3010; J7030; Q9967

== ENCOUNTER → 2020-06-12 | Outpatient (CLI) | payer BC ==
[~2020-06-12] MED LIST changes: +ASPIRIN 81M81 MG/TA2 PO; +LIPITOR 80MG80 MG PO
[2020-06-12 12:07] LABS: HEMATOCRIT 43.4 % (37.0-47.0); HEMOGLOBIN 14.3 g/dl (12.5-16.0); MEAN CELL VOLUME 89 fl (80.0-100.0); MEAN CORPUSCULAR HEMOGLOBIN 29 pg (27.0-31.0); MEAN CORPUSCULAR HGB CONC 33 g/dl (33.0-37.0); MEAN PLATELET VOLUME 9.9 fl (7.4-10.4); PLATELET COUNT 262 K/mm3 (130-400); RED BLOOD COUNT 4.89 M/mm3 (4.10-5.30); REDCELL DISTRIBUTION WIDTH-CV 12.8 % (11.5-14.5)
[2020-06-12 13:30] LABS: BAND 4 % (0-10); EOSINOPHIL 3 % (0-4); LYMPHOCYTE 22 % (20.0-51.0); NEUTROPHILS 64 % (42.0-75.2)
[2020-06-12 13:31] LABS: PLATELET ESTIMATE NORMAL (NORMAL)
[2020-06-12 13:32] LABS: HYPOCHROMIA 1+
[2020-06-12 23:29] LABS: PROCALCITONIN <0.05 ng/mL (0.00-0.09)
[2020-06-13 18:45] LABS: TB GOLD INTERPRETATION Negative (Negative)
[2020-06-14 16:18] LABS: ANGIOTENSIN CONVERTING ENZYME 5 U/L (16 - 85)
== END ==
LOC: COL.LAB 11:12
PROVIDERS: Internal Medicine Pulmonary Disease
DX: R91.1 Solitary pulmonary nodule (principal)

== ENCOUNTER 2020-07-01 09:06 | Outpatient (CLI) | payer BC ==
[~2020-07-01] VITALS: Ht 172.7 cm; Wt 100.4 kg
[2020-07-01] VITALS (20 sets, daily range): BP systolic 128–161; BP diastolic 58–89; PULSE 71–87
--- NOTE | 2020-07-01 13:15 | NUR ---
Discharge instructions given to pt.Pt verbalizes understanding.INT removed,catheter tip intact.Pt escorted out via wheelchair by htis nurse.
== END 2020-07-01 15:55 | disposition home or self-care (01) ==
LOC: COL.RAD 09:06
DX: R91.8 Other nonspecific abnormal finding of lung field (principal)
CPT/HCPCS: J3010

== ENCOUNTER → 2020-10-17 | Outpatient (CLI) | payer BC ==
[~2020-10-17] MED LIST changes: +AMOXICILLIN 8751 TAB PO; +DIFLUCAN50 MG; +PRINIVIL20 MG PO; +PROBIOTIC FORMU1 CAP PO; +ZESTRIL40 MG PO; +[UNRECOGNIZED DRUG - REMARK] PO
[2020-10-17 10:47] LABS: BASO # 0.1 (0.0-0.2); BASO % 0.7 % (0.0-2.0); EOS # 0.2 (0.0-0.7); EOS % 2.2 % (0-4.0); GRAN % 58.1 % (42.2-75.2); HEMATOCRIT 43.9 % (37.0-47.0); HEMOGLOBIN 13.9 g/dl (12.5-16.0); LYMPH # 2.2 (1.2-3.4); LYMPH % 32.2 % (20.0-51.0); MEAN CELL VOLUME 89 fl (80.0-100.0); MEAN CORPUSCULAR HEMOGLOBIN 28 pg (27.0-31.0); MEAN CORPUSCULAR HGB CONC 32 g/dl (33.0-37.0); MEAN PLATELET VOLUME 9.4 fl (7.4-10.4); MONO # 0.4 (0.1-0.6); MONO % 6.5 % (1.7-9.3); PLATELET COUNT 282 K/mm3 (130-400); RED BLOOD COUNT 4.94 M/mm3 (4.10-5.30); REDCELL DISTRIBUTION WIDTH-CV 13.8 % (11.5-14.5)
[2020-10-17 11:01] LABS: ALBUMIN 4.4 gm/dL (3.5-5.0); BILIRUBIN,TOTAL 0.2 mg/dL (0.0-1.0); CALCIUM 9.8 mg/dL (8.4-10.2); CREATININE, serum 0.67 (0.52-1.25); POTASSIUM 4.5 mmol/L (3.4-5.0); TOTAL PROTEIN 8.6 gm/dL (6.4-8.2)
[2020-10-22 08:58] LABS: .HISTOPLASMA ANTIGEN SERUM None Detected (())
[2020-10-23 15:46] LABS: HISTOPLASMA ID Negative (Negative); HISTOPLASMA MYCELIAL Negative (Negative)
== END ==
LOC: COL.LAB 10:06
PROVIDERS: Nurse Practitioner
DX: R93.89 Abnormal findings on diagnostic imaging of other specified body structures (principal)

== ENCOUNTER 2020-11-20 07:19 | Observation (INO) | payer BC ==
[~2020-11-20] VITALS: Ht 172.7 cm; Wt 100.7 kg
[~2020-11-20 07:19] MED LIST changes: -AMOXICILLIN 8751 TAB PO; -DIFLUCAN50 MG; -PRINIVIL20 MG PO; -PROBIOTIC FORMU1 CAP PO; -ZESTRIL40 MG PO; -[UNRECOGNIZED DRUG - REMARK] PO
[2020-11-20 08:03] LABS: BASO % 0.4 % (0.0-2.0); EOS # 0.1 (0.0-0.7); EOS % 1.7 % (0-4.0); GRAN # 4.4 (1.4-6.5); GRAN % 61.7 % (42.2-75.2); HEMOGLOBIN 14.1 g/dl (12.5-16.0); LYMPH # 2.2 (1.2-3.4); MEAN CELL VOLUME 87 fl (80.0-100.0); MEAN CORPUSCULAR HEMOGLOBIN 28 pg (27.0-31.0); MEAN CORPUSCULAR HGB CONC 32 g/dl (33.0-37.0); MEAN PLATELET VOLUME 9.7 fl (7.4-10.4); MONO # 0.4 (0.1-0.6); MONO % 5.8 % (1.7-9.3); PLATELET COUNT 267 K/mm3 (130-400); RED BLOOD COUNT 5.06 M/mm3 (4.10-5.30); REDCELL DISTRIBUTION WIDTH-CV 13.9 % (11.5-14.5)
[2020-11-20 08:10] LABS: ALANINE AMINOTRANSFERASE 29 U/L (4-34); ALBUMIN 4.5 gm/dL (3.5-5.0); ALKALINE PHOSPHATASE 99 U/L (50-136); ANION GAP 9 mmol/L (7-16); AST,SGOT 29 U/L (15-37); BILIRUBIN,TOTAL 0.4 mg/dL (0.0-1.0); BLOOD UREA NITROGEN 14 mg/dL (7-17); CALCIUM 9.7 mg/dL (8.4-10.2); CARBON DIOXIDE 30 mmol/L (22-30); CHLORIDE 102 mmol/L (98-107); CREATININE, serum 0.59 (0.52-1.25); GLUCOSE 121 mg/dL (74-106); POTASSIUM 3.9 mmol/L (3.4-5.0); SODIUM 141 mmol/L (137-145); TOTAL PROTEIN 8.4 gm/dL (6.4-8.2)
[2020-11-20 08:33] LABS: TROPONIN-I < 0.012 ng/mL (0.000-0.035)
[2020-11-20 08:37] LABS: COLLECTION METHOD CLEAN CATCH
[2020-11-20 08:52] LABS: PH 6 (5-8); SQUAMOUS EPITHELIAL 0-2 /hpf; URINE APPEARANCE Clear; URINE BACTERIA None Seen /hpf; URINE BILIRUBIN Negative (NEGATIVE); URINE BLOOD Negative (NEGATIVE); URINE COLOR Straw; URINE GLUCOSE 3+ (NEGATIVE); URINE KETONE Negative (NEGATIVE); URINE LEUKOCYTE ESTERASE Trace (NEGATIVE); URINE NITRATE Negative (NEGATIVE); URINE PROTEIN(semi-quant) Negative (NEGATIVE); URINE RBC 0-2 /hpf; URINE UROBILINOGEN Negative (NEGATIVE)
[2020-11-20 11:47] VITALS: BP 132/73; PULSE 81; TEMP 97.8
[2020-11-20 12:18] VITALS: BP 132/73; PULSE 81; TEMP 97.8
--- NOTE | 2020-11-20 14:00 | NUR ---
Admission assessment completed, alert/oriented, vital signs stable and B/P improved sence arriving to the ER, she reports continued epigastric burning and a headache/ I removed her Nitro paste and notified Hospitalist of her symptoms, heart RRR/ SR on tele, lungs CTA/ no resp.difficulty noted, I have updated and reviewed her meds/allergies/pharmacy, she denies other needs at this time, will continue to monitor
[2020-11-20 17:20] VITALS: BP 166/89; PULSE 71; TEMP 98.3
[2020-11-20 20:37] VITALS: BP 135/74; PULSE 89; TEMP 98
--- NOTE | 2020-11-20 22:05 | NUR ---
ALERT AND OX4. DENIES ANY PAIN, SOA OR DIZZY. PM GIVEN GIVEN ALONG W PRN DISCUSSED. GOOD APPEITE. BLOOD SUGAR OBTAINED, VSS. IV FLUSHED TO RT AC. WILL BE NPO AT MIDNIGHT. UP AMBULATING IN ROOM INDEPENDTLY. NEEDS MET
[2020-11-20 23:16] VITALS: BP 130/72; PULSE 70; TEMP 98.2
[2020-11-21 03:14] VITALS: BP 129/69; PULSE 71; TEMP 98
--- NOTE | 2020-11-21 05:13 | NUR ---
Rested through the night without incident. Needs met.
[2020-11-21 06:44] LABS: BASO % 0.6 % (0.0-2.0); EOS # 0.1 (0.0-0.7); EOS % 2.1 % (0-4.0); GRAN # 3.4 (1.4-6.5); GRAN % 54.5 % (42.2-75.2); HEMATOCRIT 40.9 % (37.0-47.0); LYMPH # 2.2 (1.2-3.4); LYMPH % 35.5 % (20.0-51.0); MEAN CELL VOLUME 88 fl (80.0-100.0); MEAN CORPUSCULAR HEMOGLOBIN 28 pg (27.0-31.0); MEAN CORPUSCULAR HGB CONC 32 g/dl (33.0-37.0); MEAN PLATELET VOLUME 10.2 fl (7.4-10.4); MONO # 0.4 (0.1-0.6); MONO % 7.1 % (1.7-9.3); PLATELET COUNT 264 K/mm3 (130-400); RED BLOOD COUNT 4.67 M/mm3 (4.10-5.30); REDCELL DISTRIBUTION WIDTH-CV 14.2 % (11.5-14.5)
[2020-11-21 06:59] LABS: ANION GAP 6 mmol/L (7-16); BLOOD UREA NITROGEN 14 mg/dL (7-17); CALCIUM 9.1 mg/dL (8.4-10.2); CARBON DIOXIDE 30 mmol/L (22-30); CHLORIDE 103 mmol/L (98-107); CREATININE, serum 0.57 (0.52-1.25); GLUCOSE 111 mg/dL (74-106); POTASSIUM 4.2 mmol/L (3.4-5.0); SODIUM 139 mmol/L (137-145)
[2020-11-21 07:12] LABS: TROPONIN-I < 0.012 ng/mL (0.000-0.035)
[2020-11-21 07:17] VITALS: BP 158/92; PULSE 66; TEMP 97.9
--- NOTE | 2020-11-21 08:16 | NUR ---
Assessment completed, alert/oriented, vital signs stable, reports headache and chest discomfort are both improved, blood pressures are improved, CT chest negative for PE, lungs CTA/ no resp.difficulty noted, she is sitting up eating breakfast and dneies needs, hoping for discharge home today
[2020-11-21] MEDS ORDERED: TOPROL XL 25MG25 MG PO (08:51)
[2020-11-21] MEDS ORDERED: ZESTRIL40 MG PO (08:52)
--- NOTE | 2020-11-21 09:10 | NUR ---
Parcel Post Weigher attended clinical rounds with the team and patient to discharge today. SW met with patient following rounds to discuss discharge planning. Patient lives alone in [place] and sees Dr. Webb for primary care. Patient obtains medications from [facility] in [place] with no difficulties and advised she works at [employer]. Patient advised today was supposed to be the first day of vacation and she plans to travel to [place] for her vacation upon discharge today. Patient uses a blood pressure cuff and glucometer at home. Patient also reports independence with ADLS. Patient has DPOA-HC in EMR which designates her son, Surendra Estrada (ph#[phone]). Patient confirmed this is correct. Discharge Plan: Home
--- NOTE | 2020-11-21 10:18 | NUR ---
Patient discharing, d/c orders and instructions discussed with patient, discussed medication changes to Lisinopril and Metoprolol, instructed to hold Metformin untill 11/23 due to the fact she had received IV contrast for CT scan yesterday, instructed to follow up with PCP and Cardiology as sscheduled, IV and tele removed, leaving with her sister, I escorted them out the door
[2021-01-14] MEDS ORDERED: PRINIVIL20 MG PO (12:04)
[2021-01-14] MEDS ORDERED: DIFLUCAN50 MG (12:06)
[2021-01-14] MEDS ORDERED: AMOXICILLIN 8751 TAB PO (12:07)
[2021-01-14] MEDS ORDERED: [UNRECOGNIZED DRUG - REMARK] PO (12:08)
[2021-01-14] MEDS ORDERED: TOPROL XL 25MG25 MG PO (12:09)
[2021-01-14] MEDS ORDERED: NITROSTAT0.4 MG/TAB SL (12:09)
[2021-01-14] MEDS ORDERED: PROBIOTIC FORMU1 CAP PO (12:10)
== END 2020-11-21 10:20 | disposition home or self-care (01) ==
LOC: COL.ER 07:19 → MEDICAL 09:12
PROVIDERS: Emergency Medicine; Physician Assistant; ADMIT Hospitalist
DX: R07.89 Other chest pain (principal); R91.1 Solitary pulmonary nodule; R21 Rash and other nonspecific skin eruption; I25.10 Atherosclerotic heart disease of native coronary artery without angina pectoris; E78.5 Hyperlipidemia, unspecified; E11.9 Type 2 diabetes mellitus without complications; I11.9 Hypertensive heart disease without heart failure; I16.0 Hypertensive urgency; E66.9 Obesity, unspecified; F41.0 Panic disorder [episodic paroxysmal anxiety]; Z90.710 Acquired absence of both cervix and uterus; Z79.84 Long term (current) use of oral hypoglycemic drugs; Z79.899 Other long term (current) drug therapy; Z79.02 Long term (current) use of antithrombotics/antiplatelets; Z79.82 Long term (current) use of aspirin; Z87.891 Personal history of nicotine dependence; Z88.2 Allergy status to sulfonamides; Z88.8 Allergy status to other drugs, medicaments and biological substances; Z80.0 Family history of malignant neoplasm of digestive organs
CPT/HCPCS: G0378; J0360; J1200; J2405; J2765; Q9967

== ENCOUNTER → 2020-12-05 | Outpatient (CLI) | payer BC ==
[~2020-12-05] MED LIST changes: +AMOXICILLIN 8751 TAB PO; +DIFLUCAN50 MG; +PRINIVIL20 MG PO; +PROBIOTIC FORMU1 CAP PO; +ZESTRIL40 MG PO; +[UNRECOGNIZED DRUG - REMARK] PO
[2020-12-11 08:15] LABS: .HISTOPLASMA ANTIGEN SERUM None Detected (())
[2020-12-11 15:25] LABS: HISTOPLASMA ID Negative (Negative); HISTOPLASMA MYCELIAL Negative (Negative)
== END ==
LOC: COL.LAB 09:34
PROVIDERS: Nurse Practitioner
DX: D71 Functional disorders of polymorphonuclear neutrophils (principal)

== ENCOUNTER → 2020-12-24 | Outpatient (CLI) | payer BC ==
[2020-12-24 14:42] LABS: BASO # 0.1 (0.0-0.2); BASO % 0.8 % (0.0-2.0); EOS # 0.1 (0.0-0.7); EOS % 1.7 % (0-4.0); GRAN # 3.6 (1.4-6.5); GRAN % 50.3 % (42.2-75.2); HEMATOCRIT 44.6 % (37.0-47.0); HEMOGLOBIN 14.1 g/dl (12.5-16.0); LYMPH % 41.5 % (20.0-51.0); MEAN CELL VOLUME 87 fl (80.0-100.0); MEAN CORPUSCULAR HEMOGLOBIN 28 pg (27.0-31.0); MEAN CORPUSCULAR HGB CONC 32 g/dl (33.0-37.0); MEAN PLATELET VOLUME 9.8 fl (7.4-10.4); MONO # 0.4 (0.1-0.6); MONO % 5.4 % (1.7-9.3); PLATELET COUNT 279 K/mm3 (130-400); RED BLOOD COUNT 5.13 M/mm3 (4.10-5.30); REDCELL DISTRIBUTION WIDTH-CV 13.6 % (11.5-14.5)
[2020-12-24 14:49] LABS: ALBUMIN 4.5 gm/dL (3.5-5.0); BILIRUBIN,TOTAL 0.4 mg/dL (0.0-1.0); CALCIUM 10.2 mg/dL (8.4-10.2); CREATININE, serum 0.74 (0.52-1.25); POTASSIUM 3.7 mmol/L (3.4-5.0); TOTAL PROTEIN 8.2 gm/dL (6.4-8.2)
== END ==
LOC: COL.LAB 14:04
PROVIDERS: Internal Medicine Infectious Disease
DX: Z01.89 Encounter for other specified special examinations (principal)

== ENCOUNTER → 2020-12-26 | Outpatient (CLI) | payer BC | LOC: COL.RAD 13:55 | DX: E04.1 Nontoxic single thyroid nodule (principal) ==

== ENCOUNTER → 2021-01-08 | Outpatient (CLI) | payer BC ==
[2021-01-08 13:02] LABS: BASO # 0.1 (0.0-0.2); BASO % 0.8 % (0.0-2.0); EOS # 0.1 (0.0-0.7); EOS % 2.1 % (0-4.0); GRAN % 48.1 % (42.2-75.2); HEMATOCRIT 41.9 % (37.0-47.0); HEMOGLOBIN 13.8 g/dl (12.5-16.0); LYMPH # 2.7 (1.2-3.4); LYMPH % 43.1 % (20.0-51.0); MEAN CELL VOLUME 84 fl (80.0-100.0); MEAN CORPUSCULAR HEMOGLOBIN 28 pg (27.0-31.0); MEAN CORPUSCULAR HGB CONC 33 g/dl (33.0-37.0); MONO # 0.4 (0.1-0.6); MONO % 5.7 % (1.7-9.3); PLATELET COUNT 247 K/mm3 (130-400); RED BLOOD COUNT 4.98 M/mm3 (4.10-5.30); REDCELL DISTRIBUTION WIDTH-CV 13.5 % (11.5-14.5)
[2021-01-08 13:17] LABS: ALBUMIN 4.5 gm/dL (3.5-5.0); BILIRUBIN,TOTAL 0.3 mg/dL (0.0-1.0); CALCIUM 10.2 mg/dL (8.4-10.2); CREATININE, serum 0.61 (0.52-1.25); POTASSIUM 4.1 mmol/L (3.4-5.0); TOTAL PROTEIN 8.3 gm/dL (6.4-8.2)
[2021-01-08 13:45] LABS: THYROID STIMULATING HORMONE 0.836 uIU/mL (0.465-4.680)
== END ==
LOC: COL.LAB 11:49
DX: E04.1 Nontoxic single thyroid nodule (principal); B99.9 Unspecified infectious disease

== ENCOUNTER → 2021-01-17 | Outpatient (CLI) | payer BC ==
[~2021-01-17] VITALS: Ht 172.7 cm; Wt 99.1 kg
[2021-01-17 12:05] VITALS: BP 145/81; PULSE 82
[2021-01-17 13:05] VITALS: BP 152/80; PULSE 67
== END ==
LOC: COL.RAD 01-15 12:00
DX: E04.1 Nontoxic single thyroid nodule (principal)
CPT/HCPCS: 32140

== ENCOUNTER → 2021-03-06 | Outpatient (CLI) | payer BC ==
[2021-03-06 11:42] LABS: BASO # 0.1 (0.0-0.2); BASO % 0.7 % (0.0-2.0); EOS # 0.1 (0.0-0.7); EOS % 1.6 % (0-4.0); GRAN # 4.5 (1.4-6.5); GRAN % 58.8 % (42.2-75.2); HEMATOCRIT 41.9 % (37.0-47.0); HEMOGLOBIN 13.5 g/dl (12.5-16.0); LYMPH # 2.5 (1.2-3.4); LYMPH % 33.2 % (20.0-51.0); MEAN CELL VOLUME 88 fl (80.0-100.0); MEAN CORPUSCULAR HEMOGLOBIN 28 pg (27.0-31.0); MEAN CORPUSCULAR HGB CONC 32 g/dl (33.0-37.0); MEAN PLATELET VOLUME 9.9 fl (7.4-10.4); MONO # 0.4 (0.1-0.6); MONO % 5.4 % (1.7-9.3); PLATELET COUNT 251 K/mm3 (130-400); RED BLOOD COUNT 4.75 M/mm3 (4.10-5.30); REDCELL DISTRIBUTION WIDTH-CV 14.8 % (11.5-14.5)
[2021-03-06 11:52] LABS: ALBUMIN 4.4 gm/dL (3.5-5.0); BILIRUBIN,TOTAL 0.3 mg/dL (0.0-1.0); CALCIUM 10.1 mg/dL (8.4-10.2); CREATININE, serum 0.69 (0.52-1.25); POTASSIUM 4.8 mmol/L (3.4-5.0); TOTAL PROTEIN 7.7 gm/dL (6.4-8.2)
[2021-03-12 15:22] LABS: HISTOPLASMA ID Negative (Negative); HISTOPLASMA MYCELIAL Negative (Negative)
== END ==
LOC: COL.LAB 11:06
PROVIDERS: Nurse Practitioner
DX: B99.9 Unspecified infectious disease (principal)

== ENCOUNTER 2021-03-30 10:06 | Emergency (ER) | payer BC ==
[~2021-03-30] VITALS: Ht 172.7 cm; Wt 99.1 kg
[2021-03-30 10:10] VITALS: TEMP 98.5
[2021-03-30 10:33] LABS: BASO # 0.1 (0.0-0.2); BASO % 0.7 % (0.0-2.0); EOS # 0.1 (0.0-0.7); EOS % 1.2 % (0-4.0); GRAN # 4.3 (1.4-6.5); GRAN % 57.9 % (42.2-75.2); HEMOGLOBIN 13.4 g/dl (12.5-16.0); LYMPH # 2.6 (1.2-3.4); LYMPH % 34.8 % (20.0-51.0); MEAN CELL VOLUME 88 fl (80.0-100.0); MEAN CORPUSCULAR HEMOGLOBIN 29 pg (27.0-31.0); MEAN CORPUSCULAR HGB CONC 34 g/dl (33.0-37.0); MEAN PLATELET VOLUME 9.8 fl (7.4-10.4); MONO # 0.4 (0.1-0.6); MONO % 4.9 % (1.7-9.3); PLATELET COUNT 260 K/mm3 (130-400); RED BLOOD COUNT 4.56 M/mm3 (4.10-5.30); REDCELL DISTRIBUTION WIDTH-CV 14.7 % (11.5-14.5)
[2021-03-30 10:40] LABS: PROTHROMBIN TIME 10.5 SECONDS (9.7-12.8)
[2021-03-30 10:48] LABS: ALANINE AMINOTRANSFERASE 41 U/L (4-34); ALBUMIN 4.6 gm/dL (3.5-5.0); ALKALINE PHOSPHATASE 93 U/L (50-136); ANION GAP 8 mmol/L (7-16); AST,SGOT 34 U/L (15-37); BILIRUBIN,TOTAL 0.6 mg/dL (0.0-1.0); BLOOD UREA NITROGEN 13 mg/dL (7-17); CALCIUM 9.9 mg/dL (8.4-10.2); CARBON DIOXIDE 30 mmol/L (22-30); CHLORIDE 103 mmol/L (98-107); CREATININE, serum 0.63 (0.52-1.25); GLUCOSE 161 mg/dL (74-106); POTASSIUM 4.2 mmol/L (3.4-5.0); SODIUM 142 mmol/L (137-145); TOTAL PROTEIN 8.2 gm/dL (6.4-8.2)
[2021-03-30 10:49] LABS: C-REACTIVE PROTEIN < 0.5 mg/dL (0.0-0.9)
[2021-03-30 10:57] LABS: TROPONIN-I < 0.012 ng/mL (0.000-0.035)
[2021-03-30 14:16] VITALS: BP 153/74; PULSE 73
== END 2021-03-30 14:16 | disposition home or self-care (01) ==
LOC: COL.ER 10:06
PROVIDERS: Physician Assistant
DX: R07.89 Other chest pain (principal); R42 Dizziness and giddiness; I16.1 Hypertensive emergency; E78.5 Hyperlipidemia, unspecified; I25.10 Atherosclerotic heart disease of native coronary artery without angina pectoris; F41.9 Anxiety disorder, unspecified; E11.9 Type 2 diabetes mellitus without complications; I25.2 Old myocardial infarction; Z79.82 Long term (current) use of aspirin; Z79.02 Long term (current) use of antithrombotics/antiplatelets; Z95.9 Presence of cardiac and vascular implant and graft, unspecified; Z79.899 Other long term (current) drug therapy; Z79.84 Long term (current) use of oral hypoglycemic drugs
CPT/HCPCS: J0780; J2405; J7030

== ENCOUNTER → 2021-06-06 | Outpatient (CLI) | payer BC | LOC: COL.RAD 13:34 | DX: Z01.811 Encounter for preprocedural respiratory examination (principal) ==

== ENCOUNTER 2021-09-06 12:29 | Emergency (ER) | payer BC ==
[~2021-09-06] VITALS: Ht 172.7 cm; Wt 98.2 kg
[2021-09-06 12:52] VITALS: PULSE 96
[2021-09-06 13:38] LABS: BASO % 0.5 % (0.0-2.0); EOS # 0.1 K/mm3 (0.0-0.7); EOS % 0.9 % (0.0-4.0); GRAN # 5.2 K/mm3 (1.4-6.5); GRAN % 63.8 % (42.2-75.2); HEMOGLOBIN 11.8 g/dl (12.5-16.0); LYMPH # 2.3 K/mm3 (1.2-3.4); LYMPH % 28.6 % (20.0-51.0); MEAN CELL VOLUME 88 fl (80.0-100.0); MEAN CORPUSCULAR HEMOGLOBIN 28 pg (27-31); MEAN CORPUSCULAR HGB CONC 32 g/dl (33.0-37.0); MEAN PLATELET VOLUME 9.9 fl (7.4-10.4); MONO # 0.5 K/mm3 (0.1-0.6); MONO % 5.8 % (1.7-9.3); PLATELET COUNT 298 K/mm3 (130-400); RED BLOOD COUNT 4.18 M/mm3 (4.10-5.30); REDCELL DISTRIBUTION WIDTH-CV 13.5 % (11.5-14.5)
[2021-09-06 13:39] LABS: HEMATOCRIT 36.8 % (37.0-47.0)
[2021-09-06 13:56] LABS: ALANINE AMINOTRANSFERASE 21 U/L (0-55); ALBUMIN 3.9 gm/dL (3.5-5.0); ALKALINE PHOSPHATASE 88 U/L (40-150); ANION GAP 8 mmol/L (7-16); AST,SGOT 17 U/L (5-34); BILIRUBIN,TOTAL 0.6 mg/dL (0.2-1.2); BLOOD UREA NITROGEN 13 mg/dL (10-20); CALCIUM 9.8 mg/dL (8.4-10.2); CARBON DIOXIDE 28 mmol/L (22-29); CHLORIDE 103 mmol/L (98-107); CREATININE, serum 0.64 mg/dL (0.57-1.11); GLUCOSE 105 mg/dL (70-99); POTASSIUM 4.2 mmol/L (3.5-4.5); SODIUM 139 mmol/L (136-145); TOTAL PROTEIN 7.3 gm/dL (6.2-8.1)
[2021-09-06 14:10] LABS: TROPONIN-I < 0.010 ng/mL (0.00-0.033)
[2021-09-06 16:20] VITALS: BP 161/92; TEMP 98.2
== END 2021-09-06 16:31 | disposition home or self-care (01) ==
LOC: COL.ER 12:29
PROVIDERS: Emergency Medicine
DX: R06.09 Other forms of dyspnea (principal); D64.9 Anemia, unspecified; R79.89 Other specified abnormal findings of blood chemistry; R79.1 Abnormal coagulation profile; I11.0 Hypertensive heart disease with heart failure; I50.9 Heart failure, unspecified; E11.9 Type 2 diabetes mellitus without complications; E78.5 Hyperlipidemia, unspecified; E66.9 Obesity, unspecified; I25.10 Atherosclerotic heart disease of native coronary artery without angina pectoris; I25.2 Old myocardial infarction; Z68.32 Body mass index [BMI] 32.0-32.9, adult; Z87.891 Personal history of nicotine dependence; Z20.822 Contact with and (suspected) exposure to COVID-19; Z79.82 Long term (current) use of aspirin; Z79.84 Long term (current) use of oral hypoglycemic drugs; Z79.899 Other long term (current) drug therapy
CPT/HCPCS: Q9967

== ENCOUNTER 2021-12-02 06:51 | Day surgery (SDC) | payer BC ==
[2021-12-02] VITALS (12 sets, daily range): BP systolic 118–144; BP diastolic 69–87; PULSE 65–76; TEMP 98.1–98.5
[~2021-12-02] VITALS: Ht 172.7 cm; Wt 97.3 kg
[2021-12-02 07:59] LABS: HEMATOCRIT 40.1 % (37.0-47.0); HEMOGLOBIN 13.2 g/dl (12.5-16.0); MEAN CELL VOLUME 85 fl (80.0-100.0); MEAN CORPUSCULAR HEMOGLOBIN 28 pg (27-31); MEAN CORPUSCULAR HGB CONC 33 g/dl (33.0-37.0); MEAN PLATELET VOLUME 9.6 fl (7.4-10.4); PLATELET COUNT 245 K/mm3 (130-400); RED BLOOD COUNT 4.72 M/mm3 (4.10-5.30); REDCELL DISTRIBUTION WIDTH-CV 14.1 % (11.5-14.5)
[2021-12-02] MEDS ORDERED: CENTRUM SILVER1 TAB PO (08:06)
[2021-12-02 08:08] LABS: PROTHROMBIN TIME 11.4 SECONDS (9.7-12.8)
[2021-12-02] MEDS ORDERED: AMOXICILLIN 8751 TAB PO (08:08)
[2021-12-02 08:10] LABS: PARTIAL THROMBOPLASTIN TIME 29.3 SECONDS (26.0-37.0)
[2021-12-02 08:15] LABS: CALCIUM 9.3 mg/dL (8.4-10.2); CREATININE, serum 0.64 mg/dL (0.57-1.11); POTASSIUM 4.2 mmol/L (3.5-4.5)
--- NOTE | 2021-12-02 09:15 | NUR ---
PATIENT ALERT AND ORIENTED. NO REPORTS OF CHEST PAIN OR DISCOMFORT. CONSENT VERIFIED. FAMILY AT SIDE. SEE MERGE FOR CATH DETAILS INCLUDING VITAL MONITORING, HEMODYNAMIC MONITORING AND MEDICATION ADMINISTRATION
--- NOTE | 2021-12-02 10:25 | NUR ---
Initial visit; Patient thanked Crystal Grower for offering prayer as she requested. Crystal Grower wished patient and family well.
--- NOTE | 2021-12-02 11:39 | NUR ---
Pt arrived from orthodontic laboratory technician, verbal report received at bedside; pt alert and oriented x4, denies pain, RR even and unlabored; vital signs cycling and WNL; 0.45% NS continuing at 100ml/hr; TR band to R wrist with 15ml air, puncture site CDI, R radial pulse present, pt denies abnormal numbness/tingling to RUE, to continue to reassess.
--- NOTE | 2021-12-02 11:54 | NUR ---
VSS, TR band remains in place to R wrist; 3ml of air removed from band, 12ml remaining; puncture site without bleeding or hematoma, pulses present throughout.
--- NOTE | 2021-12-02 12:33 | NUR ---
4 ml removed from TR band, 8ml air remaining; puncture site WNL, without bleeding, hematoma, or pain.
--- NOTE | 2021-12-02 14:07 | NUR ---
4ml of air taken out of TR band, 4mls remaining; puncture site to R radial is without s/s of bleeding or hematoma, pulses present.
--- NOTE | 2021-12-02 14:11 | NUR ---
TR band taken off of R wrist, puncture site clean and without s/s of bleeding or hematoma, site cleaned, gauze pressure dressing with tegaderm placed to site and wrapped with coban; reviewed discharge instructions and education with patient and sister at bedside, both verbalized understanding and had no questions.
== END 2021-12-02 13:35 | disposition home or self-care (01) ==
LOC: COL.CAR 06:51
PROVIDERS: Internal Medicine Cardiovascular Disease
DX: R07.9 Chest pain, unspecified (principal); Z87.891 Personal history of nicotine dependence
CPT/HCPCS: J1644; J2250; J3010; Q9967

== ENCOUNTER → 2021-12-19 | Outpatient (CLI) | payer BC ==
[~2021-12-19] MED LIST changes: +CENTRUM SILVER1 TAB PO
== END ==
LOC: COL.RAD 13:44
DX: E04.1 Nontoxic single thyroid nodule (principal)

== ENCOUNTER 2022-02-26 09:56 | Outpatient (CLI) | payer BC ==
[~2022-02-26] VITALS: Ht 172.7 cm; Wt 99.5 kg
[2022-02-26 10:26] VITALS: BP 165/97; PULSE 70; TEMP 96.8
[2022-02-26 10:45] VITALS: BP 145/89; PULSE 72
[2022-02-26 11:00] VITALS: BP 147/82; PULSE 68
[2022-02-26 11:15] VITALS: BP 132/79; PULSE 72
[2022-02-26 11:30] VITALS: BP 140/83; PULSE 69
[2022-02-26 11:45] VITALS: BP 135/76; PULSE 71
--- NOTE | 2022-02-26 11:55 | NUR ---
Pt tolerated BEB infusion and 1 hr obs period without issue. IV DC'd. Pt escorted out to ED entrance with steady gait.
== END 2022-02-26 11:55 | disposition home or self-care (01) ==
LOC: EUO 09:56
DX: U07.1 COVID-19 (principal); E11.9 Type 2 diabetes mellitus without complications; E66.9 Obesity, unspecified
CPT/HCPCS: M0222; Q0222

== ENCOUNTER 2024-02-14 06:47 | Day surgery (SDC) | payer BC ==
[~2024-02-14] VITALS: Ht 172.8 cm; Wt 107.0 kg
[2024-02-14] VITALS (9 sets, daily range): BP systolic 127–163; BP diastolic 70–92; PULSE 61–75; TEMP 98.2
[2024-02-14] MEDS ORDERED: 1/2 NS 1,000 ML IV SCH (07:15)
[2024-02-14 07:43] LABS: HEMOGLOBIN 12.2 g/dl (12.5-16.0); MEAN CELL VOLUME 87 fl (80.0-100.0); MEAN CORPUSCULAR HEMOGLOBIN 28 pg (27-31); MEAN CORPUSCULAR HGB CONC 32 g/dl (33.0-37.0); MEAN PLATELET VOLUME 9.9 fl (7.4-10.4); PLATELET COUNT 228 K/mm3 (130-400); RED BLOOD COUNT 4.37 M/mm3 (4.10-5.30); REDCELL DISTRIBUTION WIDTH-CV 13.4 % (11.5-14.5)
[2024-02-14 08:00] LABS: CALCIUM 9.6 mg/dL (8.4-10.2); CREATININE, serum 0.66 mg/dL (0.57-1.11); POTASSIUM 4.7 mEq/L (3.5-4.5)
[2024-02-14] MEDS ORDERED: AMARYL1 MG PO (08:02)
[2024-02-14] MEDS ORDERED: AMARYL 2MG T2 MG/TAB PO (08:03)
--- NOTE | 2024-02-14 09:14 | NUR ---
Please see merge document for record of interventions, vitals and medications administered during left and right heart cath with Dr. Lafleur
[2024-02-14] MEDS ORDERED: Midazolam 2 MG/2 ML VIAL IV SCH (09:53)
[2024-02-14] MEDS ORDERED: fentaNYL 50 MCG/ML 2 ML VIAL IV SCH (09:54)
[2024-02-14] MEDS ORDERED: Verapamil 2.5 MG/ML 2 ML VIAL IA SCH (09:58)
[2024-02-14] MEDS ORDERED: Nitroglycerin 100 MCG/ML (Cath Lab) 10 ML VIAL IA SCH (09:58)
[2024-02-14] MEDS ORDERED: Heparin 1,000 UNITS/ML 10 ML Multi-Dose VIAL IA SCH (09:59)
[2024-02-14] MEDS ORDERED: Heparin 1,000 UNITS/ML 10 ML Multi-Dose VIAL IV SCH (10:00)
[2024-02-14] MEDS ORDERED: Iohexol 350 - 100 ML VIAL INCOR ONE (10:02)
--- NOTE | 2024-02-14 10:15 | NUR ---
PT HAD RIGHT HEART CATH, DRESSING TO RIGHT GROIN IS CLEAN AND DRY, AREA SOFT, PT RESTS IN BED, REVIEWED RECOVERY ACTIVITY WITH PT, SISTER AT BEDSIDE. WATCHES TV
--- NOTE | 2024-02-14 10:22 | NUR ---
Mayra is transferred back to express unit rm 12, bs report and handoff of care to Bebe BANDA. Radial artery and r femoral puncture site look good. cms intact distal.
--- NOTE | 2024-02-14 11:00 | NUR ---
RIGHT GROIN CHECKED EVERY 15 MIN, AREA IS SOFT AND DRESSING CLEAN AND DRY, PT REQUESTED SNACK ONLY, SIPS ON SPRITE. CON'T SAME. NO C/O PAIN OR HAS NO QUESTIONS
--- NOTE | 2024-02-14 12:15 | NUR ---
site to right groin remains soft, dressing clean and dry, states area is "sore" when checked for signs of bleeding. released 2cc of air over 15 min to TR band, no bleeding, swelling or pain to site, bandaid on with coban for support. pt sits on side of bed, states groin site is "painful" when moving, site is unchanged.
--- NOTE | 2024-02-14 12:20 | NUR ---
Mayra is transferred back to 314 on medical. She is awake and alert, pwd with reg and unlabored resps. bs report and handoff of care to Shelbie BANDA and Elinor BANDA. Blood noted on gauze of loop dressing during handoff, pressure dressing with folded abd pad and foam tape applied.
--- NOTE | 2024-02-14 12:30 | NUR ---
pt amb. to b/r to void, states groin site "hurts", dressing remains the same, unchanged. reviewed discharged inst. with pt on care of both sites, followup appt, to hold metformin for 48 hours, and followup appt reviewed. inst pt will call for tylenol order for pain at groin site. iv d'cd intact, pt up and dressed
[2024-02-14] MEDS ORDERED: Acetaminophen 500 MG TAB PO PRN (12:45)
--- NOTE | 2024-02-14 12:48 | NUR ---
ES TYLENOL 2 TABS GIVEN FOR RIGHT GROIN PAIN, PT SITS ON SIDE OF BED, THEN DISCHARGED VIA W/C TO CAR, REPORTED TO NURSE PT HAD INCREASE PAIN TO SITE WITH MOVEMENT FROM W/C, ENCOURAGED TO TAKE TYLENOL EVERY 6 HOURS FOR DISCOMFORT
== END 2024-02-14 13:00 | disposition home or self-care (01) ==
LOC: COL.CAR 06:47
PROVIDERS: Internal Medicine Cardiovascular Disease
DX: I27.20 Pulmonary hypertension, unspecified (principal); I25.10 Atherosclerotic heart disease of native coronary artery without angina pectoris; E78.5 Hyperlipidemia, unspecified; Z95.5 Presence of coronary angioplasty implant and graft; Z79.82 Long term (current) use of aspirin; Z87.891 Personal history of nicotine dependence; Z79.899 Other long term (current) drug therapy
CPT/HCPCS: C1769; C1894; J1644; J2250; J3010; Q9967